=== PATIENT | female | born 1965 | race Caucasian/White ===

== ENCOUNTER → 2017-05-11 | Day surgery (SDC) | payer OTHER ==
[~2017-05-11] MED LIST: CALTRATE 600 W1 EACH PO; FENTANYL CITRATE/PF 100MCG/2 ML INJ ONE; FLAXSEED PO; FLONASE; LIDOCAINE HCL 2% LOCAL INJ 5 ML SDV VIAL INJ ONE; MIDAZOLAM HCL 2 MG/2 ML VIAL ONE; PROPOFOL IV EMULSION 10 MG/ML 50 ML VIAL ONE; VITAMIN E PO
== END | disposition home or self-care (01) ==
LOC: OR 06:32
PROVIDERS: ATTEND Internal Medicine Gastroenterology
DX: Z12.11 Encounter for screening for malignant neoplasm of colon (principal); K57.30 Diverticulosis of large intestine without perforation or abscess without bleeding; K64.8 Other hemorrhoids; F17.210 Nicotine dependence, cigarettes, uncomplicated
CPT/HCPCS: 45378; 93005; J2001; J2250

== ENCOUNTER → 2017-05-26 | Outpatient (CLI) | payer OTHER ==
[~2017-05-26] MED LIST changes: -FENTANYL CITRATE/PF 100MCG/2 ML INJ ONE; -LIDOCAINE HCL 2% LOCAL INJ 5 ML SDV VIAL INJ ONE; -MIDAZOLAM HCL 2 MG/2 ML VIAL ONE; -PROPOFOL IV EMULSION 10 MG/ML 50 ML VIAL ONE
--- NOTE | 2017-05-26 11:31 | Diagnostic Imaging Report ---
PROCEDURE: X-RAY BARIUM ENEMA WITH AIR CONTRAST COMPARISON: None. INDICATIONS: Incomplete routine screening colonoscopy TECHNIQUE: Citrus Fruit Packer film was obtained. Barium was introduced via a rectal tube in a retrograde fashion until contrast was noted to reach the cecum. Air was then introduced to fully inflate the colon. Multiple spot images as well as overhead and bilateral decubitus images were obtained. Fluoroscopy time: 2.1 minutes Total dose: 112.54 mGy FINDINGS: The potato chip maker film demonstrates no acute abnormalities. Clips in the right upper quadrant from a previous cholecystectomy. There is no evidence of obstruction, mass or intraluminal filling defects. The appendix is visualized. Moderate scattered diverticulosis. No evidence to suggest diverticulitis. CONCLUSION: Diverticulosis without evidence to suggest diverticulitis. Conrad Castellanos D.O. Dictated by: Conrad Castellanos D.O. on 05/26/2017 at 11:30 Electronically approved by: Conrad Castellanos D.O. on 05/26/2017 at 11:30
== END ==
LOC: DX 07:19
PROVIDERS: ATTEND Internal Medicine Gastroenterology
DX: K57.90 Diverticulosis of intestine, part unspecified, without perforation or abscess without bleeding (principal)
CPT/HCPCS: 74280

== ENCOUNTER → 2018-06-08 | Outpatient (CLI) | payer OTHER | LOC: MAMMO 14:52 | PROVIDERS: ATTEND Family Medicine | DX: Z12.31 Encounter for screening mammogram for malignant neoplasm of breast (principal) | CPT/HCPCS: 77067 ==

== ENCOUNTER → 2019-09-18 | Outpatient (CLI) | payer OTHER | LOC: MAMMO 13:00 | PROVIDERS: ATTEND Family Medicine | DX: Z12.31 Encounter for screening mammogram for malignant neoplasm of breast (principal) | CPT/HCPCS: 77067 ==

== ENCOUNTER → 2020-10-12 | Outpatient (CLI) | payer OTHER | LOC: MAMMO 14:30 | PROVIDERS: ATTEND Obstetrics & Gynecology | DX: Z12.31 Encounter for screening mammogram for malignant neoplasm of breast (principal) | CPT/HCPCS: 77067 ==